=== PATIENT | female | born 1945 | race Caucasian/White ===

== ENCOUNTER 2018-01-11 10:37 | Day surgery (SDC) | payer MEDICARE ==
[2018-01-11] VITALS (19 sets, daily range): BP systolic 99–132; BP diastolic 50–70
[~2018-01-11] VITALS: Ht 172.7 cm; Wt 68.0 kg
[~2018-01-11 10:37] MED LIST: FOLI1CAP PO; FOLI1TAB16 PO; GABA100C PO; IRON150C13 PO; ONDA4TAB6 PO
[2018-01-11] MEDS ORDERED: LORazepam 0.5 MG tablet PO PRN (11:20)
[2018-01-11] MEDS ORDERED: normal saline 1000ml 1,000 ML IV SCH (11:20)
[2018-01-11] MEDS ORDERED: diphenhydrAMINE 25mg capsule PO PRN (11:20)
[2018-01-11] MEDS ORDERED: midazolam 2 mg/2 ml injection ONE ×2 (11:43→13:59)
[2018-01-11] MEDS ORDERED: fentaNYL/PF 50MCG/1 ML 2ML syringe ONE ×2 (11:44→13:59)
[2018-01-11] MEDS ORDERED: iohexol 350MG/ML 100ml bottle IV ONE (11:44)
[2018-01-11] MEDS ORDERED: LIDOcaine 1% w/EPI 1:100,000 30ml vial (MDV) ONE (11:44)
[2018-01-11] MEDS ORDERED: FURO40TA4 PO (12:07)
[2018-01-11] MEDS ORDERED: DILT120C51 PO (12:07)
[2018-01-11] MEDS ORDERED: GABA-532 PO (12:07)
[2018-01-11] MEDS ORDERED: INSU300I INJ (12:07)
[2018-01-11] MEDS ORDERED: KAY15L PO (12:07)
[2018-01-11] MEDS ORDERED: ASPI-1265 PO (12:07)
[2018-01-11] MEDS ORDERED: CALC0.253 PO (12:07)
[2018-01-11] MEDS ORDERED: ATOR40TA PO (12:07)
[2018-01-11] MEDS ORDERED: ONDA4TAB6 PO (12:11)
[2018-01-11] MEDS ORDERED: FOLI0.4T2 PO (12:11)
[2018-01-11] MEDS ORDERED: UBID50TA3 PO (12:11)
[2018-01-11] MEDS ORDERED: iohexol 350 MG/ML 50ML vial IV ONE (14:12)
[2018-01-11] MEDS ORDERED: ticagrelor 90mg tablet ONE (14:23)
[2018-01-11] MEDS ORDERED: ondansetron 4mg rapidly disintigrating tab PO PRN (15:50)
[2018-01-11] MEDS ORDERED: proCHLORperazine 10 MG/2 ml inj IV PRN (16:05)
[2018-01-11] MEDS ORDERED: MESSAGE TO PHARMACY PO ONE (16:05)
[2018-01-11] MEDS ORDERED: insulin Lispro (HumaLOG) vial - multi-dose SQ SCH (16:05)
[2018-01-11] MEDS ORDERED: dextrose ORAL solution 15 GM/59 ML bottle PO PRN ×2 (16:05)
[2018-01-11] MEDS: normal saline 1000ml 1,000 ML IV SCH ×2 (16:05→22:23)
[2018-01-11] MEDS ORDERED: dextrose 50%-water 50ml dispensing syringe IV PRN ×2 (16:05)
[2018-01-11] MEDS ORDERED: nitroGLYCERIN 0.4mg SUBLingual tab SL PRN (16:05)
[2018-01-11] MEDS ORDERED: OXAZEpam 15mg capsule PO PRN (16:05)
[2018-01-11] MEDS ORDERED: glucagon, human recombinant 1mg kit SUBCUT PRN (16:05)
[2018-01-11] MEDS ORDERED: ondansetron/PF 4mg/2ml inj IV PRN (16:05)
[2018-01-11] MEDS ORDERED: INSULIN GLARGINE HUM REC ANLOG 1 UNIT INJ SCH (16:30)
[2018-01-11] MEDS ORDERED: non-formulary drug (Ondansetron Hcl (Zofran) 1 TAB) PO SCH (16:30)
[2018-01-11] MEDS ORDERED: gabapentin 300mg capsule PO SCH ×2 (21:00)
[2018-01-11] MEDS ORDERED: insulin glargine (Lantus) pen - multi-dose SQ SCH (21:00)
[2018-01-11] MEDS: ticagrelor 90mg tablet PO SCH (22:22)
[2018-01-12] VITALS: BP 110/60
[2018-01-12 01:00] VITALS: BP 104/59
[2018-01-12 02:00] VITALS: BP 103/54
[2018-01-12 03:00] VITALS: BP 102/51
[2018-01-12 05:32] LABS: HEMOGLOBIN A1C 13.5 % (4.5-6.2)
[2018-01-12 05:46] LABS: ALANINE AMINOTRANSFERASE 14 U/L (12-78); ALBUMIN/GLOBULIN RATIO 0.9 (1.1-1.5); ALKALINE PHOSPHATASE 57 IU/L (46-116); ANION GAP 12 (8-16); ASPARTATE AMINO TRANSFERASE 18 U/L (10-37); BILIRUBIN,TOTAL 0.4 MG/DL (0.1-1.0); BLOOD UREA NITROGEN 51 MG/DL (7-18); BUN/CREATININE RATIO 14.6 (6.6-38.0); CALCIUM 8.4 MG/DL (8.5-10.1); CHLORIDE 105 MMOL/L (99-107); CHOLESTEROL 121 MG/DL (0-200); GLUCOSE 105 MG/DL (70-104); HDL CHOLESTEROL 60 MG/DL (35-60); LDL CHOLESTEROL 50 MG/DL (50-100); POTASSIUM 4.7 MMOL/L (3.5-5.1); SODIUM 140 MMOL/L (135-145); TOTAL CARBON DIOXIDE 23.5 MMOL/L (24-32); TOTAL PROTEIN 6.2 G/DL (6.4-8.2); eGFR 13 ML/MIN
[2018-01-12 05:48] LABS: TRIGLYCERIDES 88 MG/DL (20-135)
[2018-01-12 06:00] VITALS: BP 96/47
[2018-01-12 07:01] LABS: BASOPHILS % (AUTO) 0.2 % (0-1); EOSINOPHILS # (AUTO) 0.2 X10'3 (0-0.9); EOSINOPHILS % (AUTO) 2.5 % (0-6); HEMATOCRIT 26.1 % (35.0-45.0); HEMOGLOBIN 8.9 g/dl (12.0-16.0); LYMPHOCYTES # (AUTO) 0.7 X10'3 (1.1-4.8); LYMPHOCYTES % (AUTO) 8.5 % (21-51); MEAN CORPUSCULAR HEMOGLOBIN 28.1 PG (27.0-31.0); MEAN CORPUSCULAR HGB CONC 34.1 % (33.0-36.5); MEAN CORPUSCULAR VOLUME 82.5 FL (78-98); MEAN PLATELET VOLUME 7.9 FL (7.4-10.4); MONOCYTES # (AUTO) 0.5 X10'3 (0-0.9); MONOCYTES % (AUTO) 5.4 % (2-12); NEUTROPHILS # (AUTO) 7.2 X10'3 (1.8-7.7); NEUTROPHILS % (AUTO) 83.4 % (42-75); RED BLOOD COUNT 3.17 X10'6 (4.20-5.60); WHITE BLOOD COUNT 8.6 X10'3 (4.5-11.0)
[2018-01-12 07:13] LABS: PLATELET COUNT 57 X10'3 (140-440)
[2018-01-12] MEDS ORDERED: furosemide 40mg tablet PO SCH (08:00)
[2018-01-12] MEDS ORDERED: non-formulary drug (Atorvastatin Calcium* (Lipitor*) 1 TAB) PO SCH (08:00)
[2018-01-12] MEDS ORDERED: calcitriol 0.25mcg capsule PO SCH ×2 (08:00)
[2018-01-12] MEDS ORDERED: non-formulary drug (Diltiazem HCl (Cartia Xt) 1 CAP) PO SCH (08:00)
[2018-01-12] MEDS ORDERED: folic acid 0.4mg tablet PO SCH ×2 (08:00)
[2018-01-12] MEDS ORDERED: diltiazem CD 120mg capsule (once-daily) PO SCH (08:00)
[2018-01-12] MEDS ORDERED: non-formulary drug (Ubidecarenone (Coq10) 50 MG) PO SCH (08:00)
[2018-01-12] MEDS ORDERED: atorvastatin 20mg tablet PO SCH (08:00)
[2018-01-12] MEDS ORDERED: aspirin 81mg tab.chew PO SCH (08:30)
[2018-01-12] MEDS: ticagrelor 90mg tablet PO SCH (08:47)
[2018-01-12] MEDS ORDERED: NITR0.4T51 SL (09:59)
[2018-01-12] MEDS ORDERED: TICA90TA PO (09:59)
[2018-01-12] MEDS ORDERED: [UNRECOGNIZED DRUG - REMARK] PO NR (10:00)
[2018-01-12 11:38] VITALS: BP 114/48
== END 2018-01-12 12:38 | disposition home or self-care (01) ==
LOC: SSTAY O 10:37 → PCU 3S 16:51 → SSTAY O 01-12 12:38
PROVIDERS: ATTEND Internal Medicine Interventional Cardiology
DX: I25.110 Atherosclerotic heart disease of native coronary artery with unstable angina pectoris (principal); E11.22 Type 2 diabetes mellitus with diabetic chronic kidney disease; I13.2 Hypertensive heart and chronic kidney disease with heart failure and with stage 5 chronic kidney disease, or end stage renal disease; I50.9 Heart failure, unspecified; N18.5 Chronic kidney disease, stage 5; N17.0 Acute kidney failure with tubular necrosis; D63.1 Anemia in chronic kidney disease; E87.5 Hyperkalemia; E78.5 Hyperlipidemia, unspecified; K57.92 Diverticulitis of intestine, part unspecified, without perforation or abscess without bleeding; I27.20 Pulmonary hypertension, unspecified; Z99.2 Dependence on renal dialysis; Z79.4 Long term (current) use of insulin; Z79.82 Long term (current) use of aspirin; Z88.1 Allergy status to other antibiotic agents; Z88.8 Allergy status to other drugs, medicaments and biological substances; Z79.899 Other long term (current) drug therapy; Z98.890 Other specified postprocedural states; Z85.828 Personal history of other malignant neoplasm of skin; Z86.73 Personal history of transient ischemic attack (TIA), and cerebral infarction without residual deficits
CPT/HCPCS: 36415; 80053; 80061; 82948; 83036; 85025; 93005; 93458; 99152; A6257; C1760; C1769; C1874; C9600; J1644; J1815; J2250; J2405; J3010; J3490; J7030; Q0163; Q9967; 99153; A4620